=== PATIENT | male | born 1955 | race Caucasian/White ===

== ENCOUNTER → 2021-07-12 | Outpatient (CLI) | payer MEDICARE ==
[~2021-07-12] MED LIST: COLACE100 MG PO; DILTIAZEM ER240 MG PO; LOW DOSE ASPIRI81 MG PO; NORCO 7.5-3251 EACH PO; PERCOCET 5/325 T1 EA PO; PRINIVIL20 MG PO; PROVIGIL200 MG PO
== END ==
LOC: KOH-I 09:45
DX: M75.102 Unspecified rotator cuff tear or rupture of left shoulder, not specified as traumatic (principal); M19.012 Primary osteoarthritis, left shoulder; S46.212A Strain of muscle, fascia and tendon of other parts of biceps, left arm, initial encounter
CPT/HCPCS: 73221